=== PATIENT | female | born 1990 | race Caucasian/White ===

== ENCOUNTER 2016-08-30 05:17 | Day surgery (SDC) | payer OTHER ==
[2016-08-29 12:09] VITALS: BMI 34.3
[2016-08-30] MEDS ORDERED: BUPIVACAINE HCL/PF 0.5% (5MG/ML) 10 ML VIAL ONE (08:01)
[2016-08-30] MEDS ORDERED: SODIUM CHLORIDE 0.9% P/F 10 ML VIAL IJ ONE (08:59)
[2016-08-30] MEDS ORDERED: ROCURONIUM BROMIDE 50 MG/5 ML VIAL ONE (08:59)
[2016-08-30] MEDS ORDERED: MIDAZOLAM HCL 2 MG/2 ML SINGLE DOSE VIAL ONE (08:59)
[2016-08-30] MEDS ORDERED: PROPOFOL 20 ML ONE (08:59)
[2016-08-30] MEDS ORDERED: KETOROLAC TROMETHAMINE 30 MG/1 ML VIAL ONE (08:59)
[2016-08-30] MEDS ORDERED: ceFAZolin SODIUM 1 GM VIAL ONE ×2 (08:59→09:36)
[2016-08-30] MEDS ORDERED: DEXAMETHASONE SOD PHOSPHATE 4 MG/1 ML VIAL ONE (08:59)
--- NOTE | 2016-08-30 09:02 | HP ---
History & Physical Update - History History: No Change - Physical Physical: No Change - Assessment Assessment: No Change - Plan Plan: No Change
[2016-08-30] MEDS ORDERED: ceFAZolin SODIUM 1 GM VIAL IVPB ONE (09:22)
[2016-08-30] MEDS ORDERED: PROMETHAZINE HCL 25 MG/1 ML VIAL IVPUSH PRN (09:34)
[2016-08-30] MEDS ORDERED: oxyCODONE HCL 5 MG TABLET PO PRN (09:34)
[2016-08-30] MEDS ORDERED: ONDANSETRON 4 MG/2 ML VIAL IVPUSH PRN (09:34)
[2016-08-30] MEDS ORDERED: BUPIVACAINE HCL/PF 0.5% (5MG/ML) 10 ML VIAL IJ ONE ×2 (09:36)
[2016-08-30] MEDS ORDERED: GLYCOPYRROLATE 0.2 MG/1 ML VIAL ONE (11:32)
[2016-08-30] MEDS ORDERED: NEOSTIGMINE METHYLSULFATE 0.5 MG/ML - 10 ML MDV ONE (11:32)
--- NOTE | 2016-08-30 13:51 | OP ---
Operative Note - Note: Operative Date: 08/30/16 Pre-Operative Diagnosis: umbilical hernia Operation: robotic repair of umbilical hernia with mesh Post-Operative Diagnosis: Same as Pre-op Surgeon: Eliseo Eddy Network Account Manager: Julia Tong Anesthesiologist/TREASURY REPRESENTATIVE: Benoit Ramos Jr. Anesthesia: General Estimated Blood Loss (mls): 20 Fluid Volume Replaced (mls): 1,000 Operative Report Dictated: Yes
--- NOTE | 2016-08-30 13:52 | SURG ---
Surgery Movement Assembly Final Inspector Note Movement Assembly Final Inspector: Julia Tong PA-C Date of Service: 08/30/16 Diagnosis: umbilical hernia Procedure: robotic repair of umbilical hernia with mesh I was present for the entirety of the operative procedure. For further detail, please refer to operative report. Visit type - Case Type Case Type: Scheduled Admission - Emergency Emergency Visit: No - New patient This patient is new to me today: Yes Date on this admission: 08/30/16 - Critical Care Critical Care patient: No
[2016-08-30 13:54] VITALS: TEMP 97.5
[2016-08-30] MEDS ORDERED: ONDANSETRON 4 MG/2 ML VIAL ONE (14:14)
--- NOTE | 2016-08-30 15:20 | OP ---
DATE OF OPERATION: 08/30/2016 PROCEDURE: Robotic assisted laparoscopic umbilical hernia repair with mesh. PREOPERATIVE DIAGNOSIS: Umbilical hernia. POSTOPERATIVE DIAGNOSIS: Umbilical hernia. SURGEON: Eliseo Eddy MD ANESTHESIA: General endotracheal. FINDINGS AND PROCEDURE: This is a 26-year-old female who presents with a longstanding history of an umbilical bulge which was partially reducible. On physical exam, patient has a 3-cm defect containing a partially reducible preperitoneal fat, so patient was advised repair of the umbilical hernia and consent was obtained after discussing the risks, benefits, and alternatives to the procedure. Patient was brought to the operating room and placed in supine position. General endotracheal anesthesia was administered. A roll was placed in the patient's left flank. The abdomen was prepped and draped in the usual sterile fashion. Using 0.5% Marcaine, local anesthesia was administered to the proposed incision sites. The peritoneal cavity was entered via the left subcostal, 8-mm incision using the Veress needle technique. Pneumoperitoneum was established. An 8-mm port was inserted into the left subcostal incision. The 3D 30-degree scope was inserted, and the peritoneal cavity was carefully inspected. No inadvertent injury was noted, and the umbilical defect was seen to be about 4 cm in its widest diameter with an empty hernia sac. Two 8-mm ports were inserted at the left flank posterior to the anterior axillary line about 8 mm away from each other. The target organ was set, and the robotic arms were docked. The 3D scope was placed in the middle port. A fenestrated bipolar grasper was inserted at the left lower quadrant port, and Endowrist luda connected to monopolar cautery was inserted in the left subcostal port. The undersigned scrubbed out and commenced the console part of the procedure. The parietal peritoneum was incised about 5 cm away from the umbilical defect to create the preperitoneal pocket. This was done using sharp dissection with the EndoWrist luda. The hernia sac was completely reduced, and the pocket created was about 15 x 15 cm in size. After the hernia was reduced and the size of the pocket was deemed satisfactory, the hernia defect was primarily closed with a running V-Loc No. 1 nonabsorbable suture. This was followed by reinforcement with a 12 x 11 cm ProGrip mesh deployed to the posterior abdominal wall. After deployment was deemed satisfactory, the peritoneum was closed with continuous V-Loc 2-0 absorbable sutures. The peritoneal cavity was again carefully inspected and was noted to be free of active bleeding or inadvertent injury. The robotic arms were undocked, and the pneumoperitoneum was evacuated. The ports were removed, and the wounds were closed with subcuticular Biosyn 4-0 sutures, reinforced with Dermabond. The patient was successfully extubated and transferred to the postanesthesia care unit in satisfactory condition. ESTIMATED BLOOD LOSS: About 10 mL. WOUND CLASS: Clean. The patient received a gram of Ancef prior to the start of the procedure. Karla [id number] MTDD
[2016-08-30] MEDS ORDERED: oxyCODONE HCL 5 MG TABLET ONE ×2 (15:40→15:41)
[2016-08-30 18:37] VITALS: BP 116/54; PULSE 72
== END 2016-08-30 16:40 | disposition home or self-care (01) ==
LOC: JASU-SURG 05:17
PROVIDERS: ATTEND Surgery
PROC: 8E0W3CZ Robotic Assisted Procedure of Trunk Region, Percutaneous Approach (ICD-10-PCS; 2016-08-30)
PROC: 0WUF4JZ Supplement Abdominal Wall with Synthetic Substitute, Percutaneous Endoscopic Approach (ICD-10-PCS; principal; 2016-08-30 09:00)
DX: K42.9 Umbilical hernia without obstruction or gangrene (principal)
CPT/HCPCS: 49652; S2900; 84703; 94760

== ENCOUNTER 2017-02-12 01:59 | Emergency (ER) | payer OTHER ==
[2017-02-12] MEDS ORDERED: diphenhydrAMINE HCL 25 MG CAPSULE (FP) PO ONE ×2 (02:47→02:50)
--- NOTE | 2017-02-12 03:04 | PDOC ---
History of Present Illness - General Chief Complaint: Itching Stated Complaint: SWOLLEN HANDS Time Seen by Provider: 02/12/17 02:12 History Source: Patient Exam Limitations: No Limitations - History of Present Illness Initial Comments: 02/12/17 02:59 The patient is a 27F with no PMH who presents to the ED with complaints of b/l itchy hands. The patient states that her hands were so itchy that she could not take it and came to the ED. She went to her PCP for this same issue and they prescribed her cortisone cream. This has not helped the itching. The patient states that she has a new rash on her neck as well. She denies any sick contacts or recent travel. Allergies: iron PSH: hernia repair Soc: does not smoke, drink, or use drugs Past History - Past Medical History Allergies/Adverse Reactions: Allergies Allergy/AdvReac Type Severity Reaction Status Date / Time iron Allergy Severe Rash Verified 02/12/17 02:19 Home Medications: Ambulatory Orders Oxycodone HCl/Acetaminophen [Percocet 5-325 mg Tablet] 1 tab PO Q6H PRN #20 tablet MDD 4 08/30/16 Anemia: No Asthma: No Cancer: No Cardiac Disorders: No CVA: No COPD: No CHF: No Dementia: No Diabetes: No GI Disorders: No Disorders: No HTN: No Hypercholesterolemia: No Liver Disease: No Seizures: No Thyroid Disease: No - Immunization History Immunization Up to Date: Yes - Psycho/Social/Smoking Cessation Hx Suicidal Ideation: No Smoking History: Never smoked Have you smoked in the past 12 months: No Information on smoking cessation initiated: No Hx Alcohol Use: No Drug/Substance Use Hx: No Substance Use Type: None Hx Substance Use Treatment: No Review of Systems - Review of Systems Able to Perform ROS?: Yes Is the patient limited Swedish proficient: No Constitutional: No: Chills, Fever ABD/GI: No: Nausea, Vomiting Integumentary: Yes: Rash (on back of neck) Neurological: No: Numbness, Tingling, Weakness *Physical Exam - Vital Signs Last Vital Signs Temp Pulse Resp BP Pulse Ox 97.8 F 70 20 104/58 99 02/12/17 02:19 02/12/17 02:19 02/12/17 02:19 02/12/17 02:19 02/12/17 02:19 - Physical Exam General Appearance: Yes: Nourished, Appropriately Dressed. No: Apparent Distress HEENT: positive: Normal Voice, Hearing Grossly Normal Respiratory/Chest: positive: Lungs Clear, Normal Breath Sounds. negative: Chest Tender, Respiratory Distress, Crackles, Rales, Rhonchi Cardiovascular: positive: Regular Rhythm, Regular Rate, S1, S2. negative: Diastolic Murmur, Systolic Murmur Gastrointestinal/Abdominal: positive: Flat, Soft. negative: Tender, Distended, Guarding, Rebound, Tenderness Integumentary: positive: Dry, Warm, Other (Papular rash on dorsal and palmar surface of hands, erythematous, and some papules are excoriated. This is also present on R foot. Acne scars on back of neck.) Neurologic: positive: Fully Oriented, Alert, Normal Mood/Affect ED Treatment Course - Medications Given in the ED: ED Medications Discontinued Medications Generic Name Dose Route Start Last Admin Trade Name Freq PRN Reason Stop Dose Admin Diphenhydramine HCl 25 mg 02/12/17 02:47 02/12/17 02:51 Benadryl - PO 02/12/17 02:48 25 mg ONCE ONE Administration Medical Decision Making - Medical Decision Making 02/12/17 03:08 The patient is a 27F who presents w/ b/l itchy hands. This is not scabies. I have advised for f/u w/ a [employer] professor. I have given benadryl to help with the itching. Patient agrees and is ready for d/c. *DC/Admit/Observation/Transfer Diagnosis at time of Disposition: Itch - Discharge Dispostion Disposition: HOME Condition at time of disposition: Stable Admit: No - Patient Instructions Printed Discharge Instructions: DI for Itching Additional Instructions: Please return to the ER if symptoms person, worsen, or if new symptoms arise. Please follow up with your [employer] professor for the itching. - Attestations Physician Attestion: 02/12/17 03:09 I, Dr. Demarco Cabezas, attest that this document has been prepared under my direction and personally reviewed by me in its entirety. I further attest, that it accurately reflects all work, treatment, procedures and medical decision -making performed by me.
[2017-02-12 05:10] VITALS: BP 104/58; PULSE 70; TEMP 97.8; BMI 36.3
== END 2017-02-12 03:14 | disposition home or self-care (01) ==
LOC: JER 01:59
DX: L29.9 Pruritus, unspecified (principal)
CPT/HCPCS: 99281-25

== ENCOUNTER 2021-10-28 04:34 | Day surgery (SDC) | payer OTHER ==
[2021-10-26 12:52] VITALS: BMI 29.4
[2021-10-28 08:33] VITALS: TEMP 98.4
[2021-10-28 08:42] VITALS: PULSE 42
[2021-10-28 09:10] VITALS: BP 114/50
== END 2021-10-28 09:49 | disposition home or self-care (01) ==
LOC: JASU-ENDO 04:34
PROVIDERS: ATTEND Internal Medicine Gastroenterology
PROC: 0DB78ZX Excision of Stomach, Pylorus, Via Natural or Artificial Opening Endoscopic, Diagnostic (ICD-10-PCS; principal; 2021-10-28 08:00)
DX: K29.50 Unspecified chronic gastritis without bleeding (principal)
CPT/HCPCS: 81025; 88305-TC; 88342-TC

== ENCOUNTER 2022-02-24 14:58 | Emergency (ER) | payer OTHER ==
[2022-02-24 15:04] VITALS: BP 114/69; PULSE 56; RESP 18; TEMP 97; BMI 29.7
== END 2022-02-24 16:50 | disposition home or self-care (01) ==
LOC: JERFT 14:58
PROC: 0Y9M3ZZ Drainage of Right Foot, Percutaneous Approach (ICD-10-PCS; principal; 2022-02-24)
DX: L03.031 Cellulitis of right toe (principal)
CPT/HCPCS: 99282-25

== ENCOUNTER 2024-09-15 15:20 | Inpatient (IN) | payer OTHER ==
[2024-09-15] MEDS: ELECTROLYTE-148 SOLN 1,000 ML IV SCH (20:15)
[2024-09-15 20:37] VITALS: BMI 42.4
[2024-09-15 20:41] LABS: BASO % 0.2 % (0-2.0); EOS % 2.4 % (0-4.5); HEMATOCRIT 31.7 % (32.4-45.2); HEMOGLOBIN 10.6 GM/dL (10.7-15.3); LYMPH % 24.9 % (8-40); MCH 28.2 pg (25.7-33.7); MCHC 33.5 g/dl (32.0-36.0); MEAN CELL VOLUME 84.2 fl (80-96); MEAN PLT VOLUME 9.1 fl (7.5-11.1); MONO % 6.7 % (3.8-10.2); NEUT % 65.8 % (42.8-82.8); PLATELET COUNT 261 10^3/uL (134-434); RBC 3.77 M/mm3 (3.60-5.2); WHITE BLOOD COUNT 7.7 K/mm3 (4.0-10.0)
[2024-09-15] MEDS ORDERED: AZITHROMYCIN IVPB 500 MG/250 ML BAG IVPB ONE (20:45)
[2024-09-15] MEDS: CITRIC ACID/SODIUM CITRATE 30 ML UNIT-DOSE CUP PO ONE (20:50)
[2024-09-15 21:07] LABS: POTASSIUM 3.9 mmol/L (3.5-5.1)
[2024-09-15 21:09] LABS: CALCIUM 8.6 mg/dL (8.5-10.1)
[2024-09-15 21:13] LABS: CREATININE 0.5 mg/dL (0.55-1.3)
[2024-09-15 21:40] LABS: OPIATES, URI NEGATIVE (NEGATIVE)
[2024-09-15 21:41] LABS: COCAINE, UR NEGATIVE (NEGATIVE); METHADONE, UR NEGATIVE (NEGATIVE); PHENCYCLIDINE,URINE NEGATIVE (NEGATIVE); URINE AMPHETAMINES NEGATIVE (NEGATIVE); URINE BARBITURATES NEGATIVE (NEGATIVE); URINE BENZODIAZEPINES NEGATIVE (NEGATIVE)
[2024-09-15] MEDS ORDERED: FENTANYL CITRATE/PF 50 MCG/ML VIAL ONE (21:43)
[2024-09-15] MEDS ORDERED: morphine SULFATE/PF 1 MG/2 ML (2cc Syringe - QUVA) ONE (21:43)
[2024-09-15 22:04] LABS: HIV INTERPRETATION NEGATIVE (NEGATIVE)
[2024-09-15] MEDS: OXYTOCIN 20 UNITS in 0.9% NS 20 UNIT/1,000 ML INFUS.BAG IV SCH (22:35)
[2024-09-15] MEDS ORDERED: OXYTOCIN 20 UNITS in 0.9% NS 20 UNIT/1,000 ML INFUS.BAG IV ONE (22:38)
[2024-09-15] MEDS ORDERED: SIMETHICONE 80 MG TAB.CHEW (FP) PO PRN (22:41)
[2024-09-15] MEDS ORDERED: IBUPROFEN 800 MG/8 ML IJ IVPB PRN (22:41)
[2024-09-15] MEDS ORDERED: METHYLERGONOVINE MALEATE 0.2 MG/1 ML AMP IM PRN (22:41)
[2024-09-16 07:11] LABS: BASO % 0.2 % (0-2.0); EOS % 1.6 % (0-4.5); HEMATOCRIT 29.2 % (32.4-45.2); HEMOGLOBIN 9.6 GM/dL (10.7-15.3); LYMPH % 15.7 % (8-40); MCH 28.4 pg (25.7-33.7); MEAN CELL VOLUME 85.9 fl (80-96); MEAN PLT VOLUME 8.9 fl (7.5-11.1); MONO % 6.5 % (3.8-10.2); PLATELET COUNT 221 10^3/uL (134-434); RDW 15.8 % (11.6-15.6); WHITE BLOOD COUNT 10.1 K/mm3 (4.0-10.0)
[2024-09-16 07:19] LABS: INR 0.96 (0.83-1.09); PROTHROMBIN TIME (PATIENT) 10.5 SEC (9.7-13.0)
[2024-09-16] MEDS: FERROUS SO4 325 MG TABLET (FP) PO SCH (09:24)
[2024-09-16] MEDS: IBUPROFEN 600 MG TABLET (FP) PO PRN (09:24)
[2024-09-16] MEDS: PRENATAL VITAMINS W/ FOLIC ACID TABLET (FP) PO SCH (09:24)
[2024-09-16] MEDS ORDERED: oxyCODONE HCL 5 MG TABLET PO PRN (10:41)
[2024-09-16] MEDS ORDERED: BISACODYL 10 MG SUPP.RECT RC PRN (22:41)
[2024-09-17] MEDS: ACETAMINOPHEN 325 MG TABLET (FP) PO PRN (20:29)
[2024-09-17 22:21] VITALS: RESP 18
[2024-09-18 07:43] LABS: BASO % 0.3 % (0-2.0); HEMATOCRIT 29.8 % (32.4-45.2); HEMOGLOBIN 9.8 GM/dL (10.7-15.3); LYMPH % 29.2 % (8-40); MCH 28.5 pg (25.7-33.7); MCHC 32.9 g/dl (32.0-36.0); MEAN CELL VOLUME 86.5 fl (80-96); MEAN PLT VOLUME 8.6 fl (7.5-11.1); MONO % 6.6 % (3.8-10.2); NEUT % 59.9 % (42.8-82.8); PLATELET COUNT 272 10^3/uL (134-434); RBC 3.44 M/mm3 (3.60-5.2); RDW 15.7 % (11.6-15.6)
[2024-09-19 10:29] VITALS: BP 119/62; PULSE 58; TEMP 97.7
== END 2024-09-19 15:13 | disposition home or self-care (01) | DRG 540 ==
LOC: JLDR 15:20 → UNDOADMIN 15:20 → JLDR 18:20 → J3W 09-16 00:12
PROVIDERS: ADMIT Obstetrics & Gynecology; ATTEND Obstetrics & Gynecology
PROC: 10D00Z1 Extraction of Products of Conception, Low, Open Approach (ICD-10-PCS; principal; 2024-09-15)
DX: O34.219 Maternal care for unspecified type scar from previous cesarean delivery (principal); O69.81X0 Labor and delivery complicated by cord around neck, without compression, not applicable or unspecified; Z3A.39 39 weeks gestation of pregnancy; Z37.0 Single live birth
CPT/HCPCS: 36415; 59409; 80048; 80307; 85025; 85610; 85730; 86780; 86850; 86900; 86901; 87389; 88307-TC